=== PATIENT | male | born 1930 | race Caucasian/White ===

== ENCOUNTER 2016-05-25 15:41 | Inpatient (IN) | payer OTHER ==
[~2016-05-25] VITALS: Ht 170.2 cm; Wt 78.6 kg
[2016-05-25 17:46] LABS: HEMATOCRIT 25.4 % (38.0-50.0); MCHC 29.9 G/DL (30.0-36.0); MCV 93.7 FL (86-99); MEAN PLAT.VOLUME 9.8 uM^3 (9.0-12.4); NRBC (%) 0.4 /100 WBC (0-0); PLATELET COUNT 169 K/uL (156-360); RBC DIS.WIDTH-CV 16.5 % (11.8-14.6); RBC DIS.WIDTH-SD 56.8 % (39-53); RED BLOOD COUNT 2.71 M/uL (4.00-5.50); WHITE BLOOD COUNT 5.1 K/uL (4.1-10.2)
[2016-05-25 17:48] LABS: CHLORIDE 107 mEq/L (99-109); POTASSIUM 3.9 mEq/L (3.7-5.4); SODIUM 140 mEq/L (136-147)
[2016-05-25 17:50] LABS: GLUCOSE 97 mg/dL (70-99)
[2016-05-25 17:51] LABS: ANION GAP 11 MEQ/L (2-14)
[2016-05-25 17:54] LABS: GFR ESTIMATE (CALCULATED) 47 mL/min/; UREA NITROGEN (BUN) 30 mg/dL (9-23)
[2016-05-25] MEDS ORDERED: SIMVASTATIN80 MG PO (18:35)
[2016-05-25] MEDS ORDERED: SPIRONOLACTONE25 MG PO (18:35)
[2016-05-25] MEDS ORDERED: FUROSEMIDE80 MG PO (18:35)
[2016-05-25] MEDS ORDERED: IRON325 M1 PO (18:35)
[2016-05-25] MEDS ORDERED: COUMADIN2 MG PO (18:35)
[2016-05-25] MEDS ORDERED: SYNTHROID112 MCG PO (18:36)
[2016-05-25] MEDS ORDERED: EFFEXOR XR150 MG PO (18:36)
[2016-05-25] MEDS ORDERED: COUMADIN3 MG PO (18:36)
[2016-05-25] MEDS ORDERED: VALSARTAN160 MG PO (18:36)
[2016-05-25] MEDS ORDERED: LEVALBUTER1.25 MG/0. IH (18:36)
[2016-05-25 18:37] LABS: INTER. NORMALIZED RATIO 1.9; PROTHROMBIN TIME 20.1 (9.2-11.2)
[2016-05-25] MEDS ORDERED: ALLEGRA ALLERG180 MG PO (18:37)
[2016-05-25] MEDS ORDERED: CENTRUM SILVER1 EAC3 PO (18:37)
[2016-05-25] MEDS ORDERED: ADVIL200 MG PO (18:37)
[2016-05-25 19:57] VITALS: BP 130/77
[2016-05-25 20:17] VITALS: BP 139/83
[2016-05-25 21:25] VITALS: BP 131/87
[2016-05-25 21:42] LABS: TROP-I INTERPRETATION NEGATIVE; TROPONIN-I 0.11 ng/mL (0.0-0.30)
[2016-05-25 22:39] VITALS: BP 144/70
[2016-05-26] VITALS (8 sets, daily range): BP systolic 115–140; BP diastolic 63–77
[2016-05-26 05:01] LABS: HEMATOCRIT 30.6 % (38.0-50.0)
[2016-05-26 05:02] LABS: MCV 89.7 FL (86-99)
[2016-05-26 05:08] LABS: INTER. NORMALIZED RATIO 1.8; PROTHROMBIN TIME 18.2 (9.2-11.2)
[2016-05-26 05:09] LABS: CHLORIDE 108 mEq/L (99-109); POTASSIUM 3.9 mEq/L (3.7-5.4); SODIUM 140 mEq/L (136-147)
[2016-05-26 05:11] LABS: GLUCOSE 86 mg/dL (70-99)
[2016-05-26 05:12] LABS: ANION GAP 11 MEQ/L (2-14)
[2016-05-26 05:13] LABS: TOTAL BILIRUBIN 0.7 mg/dL (0.0-1.0)
[2016-05-26 05:15] LABS: ALKALINE PHOSPHATASE 71 IU/L (3-129); GFR ESTIMATE (CALCULATED) 51 mL/min/
[2016-05-26 05:16] LABS: UREA NITROGEN (BUN) 25 mg/dL (9-23)
[2016-05-26 05:19] LABS: TROP-I INTERPRETATION NEGATIVE; TROPONIN-I 0.11 ng/mL (0.0-0.30)
[2016-05-26 09:50] LABS: TROP-I INTERPRETATION NEGATIVE; TROPONIN-I 0.11 ng/mL (0.0-0.30)
[2016-05-26 12:17] LABS: HEMATOCRIT 30.3 % (38.0-50.0); MCV 90.7 FL (86-99)
[2016-05-26 17:55] LABS: MCV 92.7 FL (86-99)
[2016-05-27] VITALS (7 sets, daily range): BP systolic 103–145; BP diastolic 58–82
[2016-05-27 01:05] LABS: HEMATOCRIT 30.5 % (38.0-50.0); MCV 91.3 FL (86-99)
[2016-05-27 07:11] LABS: HEMATOCRIT 31.8 % (38.0-50.0); MCH 28.2 PG (29.0-34.0); MCHC 30.8 G/DL (30.0-36.0); MCV 91.6 FL (86-99); MEAN PLAT.VOLUME 9.8 uM^3 (9.0-12.4); PLATELET COUNT 155 K/uL (156-360); RBC DIS.WIDTH-CV 16.7 % (11.8-14.6); RBC DIS.WIDTH-SD 55.1 % (39-53); WHITE BLOOD COUNT 6.1 K/uL (4.1-10.2)
[2016-05-27 07:31] LABS: PROTHROMBIN TIME 20.7 (9.2-11.2)
[2016-05-27 07:35] LABS: ANION GAP 9 MEQ/L (2-14); CHLORIDE 108 MEQ/L (99-109); GFR ESTIMATE (CALCULATED) > 59 mL/min/; GLUCOSE 85 mg/dL (70-99); SAMPLE HEMOLYSIS CHECK 0; SAMPLE ICTERIC CHECK 0; SAMPLE LIPEMIA CHECK 0; SODIUM 140 MEQ/L (136-147); UREA NITROGEN (BUN) 19 mg/dL (9-23)
[2016-05-27 07:54] LABS: RED BLOOD COUNT 3.47 M/uL (4.00-5.50)
[2016-05-27 18:12] LABS: HEMATOCRIT 33.4 % (38.0-50.0); MCV 92.8 FL (86-99)
[2016-05-28] VITALS (7 sets, daily range): BP systolic 102–133; BP diastolic 58–75
[2016-05-28 06:30] LABS: HEMATOCRIT 32.1 % (38.0-50.0); MCH 28.2 PG (29.0-34.0); MCHC 30.5 G/DL (30.0-36.0); MCV 92.2 FL (86-99); MEAN PLAT.VOLUME 10.3 uM^3 (9.0-12.4); PLATELET COUNT 171 K/uL (156-360); RBC DIS.WIDTH-CV 16.7 % (11.8-14.6); RBC DIS.WIDTH-SD 54.7 % (39-53); RED BLOOD COUNT 3.48 M/uL (4.00-5.50); WHITE BLOOD COUNT 5.9 K/uL (4.1-10.2)
[2016-05-28 06:45] LABS: INTER. NORMALIZED RATIO 2.2; PROTHROMBIN TIME 22.7 (9.2-11.2)
[2016-05-28 07:06] LABS: ANION GAP 10 MEQ/L (2-14); CHLORIDE 105 MEQ/L (99-109); GFR ESTIMATE (CALCULATED) 56 mL/min/; POTASSIUM 3.7 MEQ/L (3.7-5.4); SAMPLE HEMOLYSIS CHECK 0; SAMPLE ICTERIC CHECK 0; SAMPLE LIPEMIA CHECK 0; SODIUM 138 MEQ/L (136-147); UREA NITROGEN (BUN) 16 mg/dL (9-23)
[2016-05-28 07:11] LABS: GLUCOSE 115 mg/dL (70-99)
[2016-05-29 00:02] LABS: HEMATOCRIT 32.8 % (38.0-50.0); MCH 28.4 PG (29.0-34.0); MCHC 31.4 G/DL (30.0-36.0); MCV 90.4 FL (86-99); MEAN PLAT.VOLUME 9.8 uM^3 (9.0-12.4); PLATELET COUNT 159 K/uL (156-360); RBC DIS.WIDTH-CV 16.3 % (11.8-14.6); RBC DIS.WIDTH-SD 53.7 % (39-53); RED BLOOD COUNT 3.63 M/uL (4.00-5.50); WHITE BLOOD COUNT 5.4 K/uL (4.1-10.2)
[2016-05-29 00:10] LABS: CHLORIDE 111 mEq/L (99-109); POTASSIUM 3.5 mEq/L (3.7-5.4); SODIUM 142 mEq/L (136-147)
[2016-05-29 00:11] LABS: MAGNESIUM 2.2 mg/dL (1.3-2.7)
[2016-05-29 00:12] LABS: GLUCOSE 92 mg/dL (70-99)
[2016-05-29 00:14] LABS: ANION GAP 12 MEQ/L (2-14)
[2016-05-29 00:16] LABS: GFR ESTIMATE (CALCULATED) > 59 mL/min/
[2016-05-29 00:17] LABS: UREA NITROGEN (BUN) 15 mg/dL (9-23)
[2016-05-29 00:24] LABS: TROP-I INTERPRETATION NEGATIVE; TROPONIN-I 0.11 ng/mL (0.0-0.30)
[2016-05-29 03:20] VITALS: BP 116/61
[2016-05-29 07:28] VITALS: BP 115/64
[2016-05-29 07:37] LABS: HEMATOCRIT 30.2 % (38.0-50.0); MCH 29.1 PG (29.0-34.0); MCHC 31.1 G/DL (30.0-36.0); MCV 93.5 FL (86-99); MEAN PLAT.VOLUME 9.9 uM^3 (9.0-12.4); PLATELET COUNT 136 K/uL (156-360); RBC DIS.WIDTH-CV 16.5 % (11.8-14.6); RED BLOOD COUNT 3.23 M/uL (4.00-5.50); WHITE BLOOD COUNT 4.8 K/uL (4.1-10.2)
[2016-05-29 07:47] LABS: INTER. NORMALIZED RATIO 2.3; PROTHROMBIN TIME 23.6 (9.2-11.2)
[2016-05-29 07:52] LABS: ADD MIUA? NO; BILIRUBIN NEGATIVE; BLOOD NEGATIVE; COLOR YELLOW ((YELLOW)); GLUCOSE (STRIP) NEGATIVE; KETONES NEGATIVE; LEUKOCYTES NEGATIVE; NITRITE NEGATIVE; PROTEIN (STRIP) NEGATIVE; SPECIFIC GRAVITY 1.019 (1.000-1.030); UROBILINOGEN 0.2 MG/DL (0.2-1.0)
[2016-05-29 08:18] LABS: ANION GAP 11 MEQ/L (2-14); CHLORIDE 108 MEQ/L (99-109); GFR ESTIMATE (CALCULATED) > 59 mL/min/; GLUCOSE 89 mg/dL (70-99); SAMPLE HEMOLYSIS CHECK 0; SAMPLE ICTERIC CHECK 0; SAMPLE LIPEMIA CHECK 0; SODIUM 142 MEQ/L (136-147); UREA NITROGEN (BUN) 14 mg/dL (9-23)
[2016-05-29 11:30] VITALS: BP 140/67
[2016-05-29 19:46] VITALS: BP 110/87
[2016-05-29 22:00] VITALS: BP 117/69
[2016-05-29 23:45] VITALS: BP 107/60
[2016-05-30] VITALS (7 sets, daily range): BP systolic 88–124; BP diastolic 50–77
[2016-05-30 07:19] LABS: MCH 28.5 PG (29.0-34.0); MCHC 30.7 G/DL (30.0-36.0); MCV 92.9 FL (86-99); MEAN PLAT.VOLUME 9.6 uM^3 (9.0-12.4); PLATELET COUNT 138 K/uL (156-360); RBC DIS.WIDTH-CV 16.2 % (11.8-14.6); RBC DIS.WIDTH-SD 55.2 % (39-53); RED BLOOD COUNT 3.23 M/uL (4.00-5.50)
[2016-05-30 07:28] LABS: WHITE BLOOD COUNT 6.3 K/uL (4.1-10.2)
[2016-05-30 12:04] LABS: HEMATOCRIT 28.8 % (38.0-50.0); MCV 93.5 FL (86-99)
[2016-05-30 16:13] LABS: HEMATOCRIT 31.4 % (38.0-50.0); MCV 92.9 FL (86-99)
[2016-05-30 18:04] LABS: BICARBONATE 22.1 mEq/L (22-26); COMMENTS - BLOOD GASES A+C+; DEVICE NCH; METHEMOGLOBIN 1.7 % (0-1.5); O2 FLOW 6 L/MIN; PCO2 34 mm Hg (35-45); PO2 64 mm Hg (80-100); SITE RR; pH 7.42 (7.35-7.45)
[2016-05-30 18:05] LABS: TOTAL RESP RATE 20 resp/min
[2016-05-30 19:32] LABS: TROP-I INTERPRETATION NEGATIVE; TROPONIN-I 0.13 ng/mL (0.0-0.30)
[2016-05-31 03:45] VITALS: BP 126/60
[2016-05-31 06:26] LABS: HEMATOCRIT 29.2 % (38.0-50.0); MCH 28.1 PG (29.0-34.0); MCHC 30.5 G/DL (30.0-36.0); MCV 92.1 FL (86-99); MEAN PLAT.VOLUME 9.9 uM^3 (9.0-12.4); PLATELET COUNT 119 K/uL (156-360); RBC DIS.WIDTH-CV 16.3 % (11.8-14.6); RBC DIS.WIDTH-SD 54.9 % (39-53); RED BLOOD COUNT 3.17 M/uL (4.00-5.50); WHITE BLOOD COUNT 5.9 K/uL (4.1-10.2)
[2016-05-31 06:35] LABS: ABSOLUTE RETICULOCYTE CT. 0.1 M/uL (0.02-0.08); IMM.RETIC FRACTION 26.8 % (3-19); RETIC HGB EQUIVALENT 24.3 (28-36); RETICULOCYTE COUNT 3.1 % (0.5-1.8)
[2016-05-31 06:48] LABS: GLOBULINS 2.4 G/DL (2.3-3.5)
[2016-05-31 06:56] LABS: INTER. NORMALIZED RATIO 1.6; PROTHROMBIN TIME 16.7 (9.2-11.2); PTT 32.3 (25-32)
[2016-05-31 07:36] LABS: ANION GAP 10 MEQ/L (2-14); CHLORIDE 106 MEQ/L (99-109); GFR ESTIMATE (CALCULATED) 56 mL/min/; GLUCOSE 88 mg/dL (70-99); POTASSIUM 4.3 MEQ/L (3.7-5.4); SAMPLE HEMOLYSIS CHECK 0; SAMPLE ICTERIC CHECK 0; SAMPLE LIPEMIA CHECK 0; SODIUM 137 MEQ/L (136-147); UREA NITROGEN (BUN) 21 mg/dL (9-23)
[2016-05-31 07:47] VITALS: BP 106/64
[2016-05-31 09:48] LABS: MAGNESIUM 2.1 mg/dl (1.3-2.7)
[2016-05-31 16:04] VITALS: BP 104/57
[2016-05-31 19:46] VITALS: BP 110/58
[2016-06-01] VITALS (7 sets, daily range): BP systolic 117–159; BP diastolic 58–87
[2016-06-01 06:36] LABS: HEMATOCRIT 28.9 % (38.0-50.0); MCHC 30.4 G/DL (30.0-36.0); MEAN PLAT.VOLUME 10.1 uM^3 (9.0-12.4); PLATELET COUNT 125 K/uL (156-360); RBC DIS.WIDTH-CV 16.3 % (11.8-14.6); RBC DIS.WIDTH-SD 54.5 % (39-53); RED BLOOD COUNT 3.14 M/uL (4.00-5.50)
[2016-06-01 06:45] LABS: WHITE BLOOD COUNT 3.5 K/uL (4.1-10.2)
[2016-06-01 08:00] LABS: ANION GAP 10 MEQ/L (2-14); CHLORIDE 106 MEQ/L (99-109); GFR ESTIMATE (CALCULATED) 56 mL/min/; GLUCOSE 132 mg/dL (70-99); POTASSIUM 4.3 MEQ/L (3.7-5.4); SAMPLE HEMOLYSIS CHECK 0; SAMPLE ICTERIC CHECK 0; SAMPLE LIPEMIA CHECK 0; SODIUM 136 MEQ/L (136-147); UREA NITROGEN (BUN) 22 mg/dL (9-23)
[2016-06-01 10:04] LABS: ALBUMIN 3.62 G/DL (3.6-4.9); ALBUMIN PERCENT 60.3 %; ALPHA-1 GLOBULIN 0.25 G/DL (0.15-0.40); ALPHA-1 PERCENT 4.2 %; ALPHA-2 GLOBULIN 0.63 G/DL (0.45-0.85); ALPHA-2 PERCENT 10.5 %; BETA PERCENT 10.7 %; GAMMA PERCENT 14.3 %
[2016-06-01 10:45] LABS: INTERPRETATION: Normal study.
[2016-06-01 22:09] LABS: FERRITIN 69 NG/ML (22-322)
[2016-06-02 04:00] VITALS: BP 132/70
[2016-06-02 07:03] LABS: EOSINOPHIL (%) 0 % (0-5); HEMATOCRIT 29.6 % (38.0-50.0); IMMATURE GRANULOCYTE (%) 0.5 % (0.0-0.7); INSTRUMENT ABS NEUTROPHIL CT 5.1 K/uL; INTER. NORMALIZED RATIO 1.3; LYMPHOCYTE COUNT 0.4 K/uL (1.0-2.8); MCHC 30.7 G/DL (30.0-36.0); MCV 91.1 FL (86-99); MEAN PLAT.VOLUME 10.5 uM^3 (9.0-12.4); MONOCYTE (%) 5.7 % (3-12); MONOCYTE COUNT 0.3 K/uL (0-0.8); NEUTROPHIL (%) 86.5 % (45-76); NEUTROPHIL COUNT 5.1 K/uL (1.8-6.4); PLATELET COUNT 145 K/uL (156-360); PROTHROMBIN TIME 13.8 (9.2-11.2); RBC DIS.WIDTH-SD 53.1 % (39-53); RED BLOOD COUNT 3.25 M/uL (4.00-5.50)
[2016-06-02 07:04] LABS: WHITE BLOOD COUNT 5.9 K/uL (4.1-10.2)
[2016-06-02 08:38] VITALS: BP 127/77
[2016-06-02 08:42] LABS: CHLORIDE 108 mEq/L (99-109); POTASSIUM 4.8 mEq/L (3.7-5.4); SODIUM 136 mEq/L (136-147)
[2016-06-02 08:43] LABS: GLUCOSE 116 mg/dL (70-99)
[2016-06-02 08:45] LABS: ANION GAP 11 MEQ/L (2-14)
[2016-06-02 08:47] LABS: GFR ESTIMATE (CALCULATED) 56 mL/min/
[2016-06-02 08:48] LABS: UREA NITROGEN (BUN) 29 mg/dL (9-23)
[2016-06-02 10:55] LABS: ADD DIFF? YES
[2016-06-02 11:03] VITALS: BP 132/80
[2016-06-02 16:25] VITALS: BP 139/78
[2016-06-02 20:15] VITALS: BP 123/70
[2016-06-03] VITALS: BP 128/68
[2016-06-03 04:02] VITALS: BP 132/63
[2016-06-03 06:51] LABS: HEMATOCRIT 29.1 % (38.0-50.0); MCH 27.8 PG (29.0-34.0); MCHC 30.2 G/DL (30.0-36.0); MCV 91.8 FL (86-99); PLATELET COUNT 146 K/uL (156-360); RBC DIS.WIDTH-CV 16.4 % (11.8-14.6); RBC DIS.WIDTH-SD 54.8 % (39-53); RED BLOOD COUNT 3.17 M/uL (4.00-5.50); WHITE BLOOD COUNT 5.9 K/uL (4.1-10.2)
[2016-06-03 07:20] LABS: ANION GAP 12 MEQ/L (2-14); CHLORIDE 105 MEQ/L (99-109); GFR ESTIMATE (CALCULATED) 44 mL/min/; GLUCOSE 107 mg/dL (70-99); POTASSIUM 4.4 MEQ/L (3.7-5.4); SAMPLE HEMOLYSIS CHECK 0; SAMPLE ICTERIC CHECK 0; SAMPLE LIPEMIA CHECK 0; SODIUM 138 MEQ/L (136-147); UREA NITROGEN (BUN) 37 mg/dL (9-23)
[2016-06-03 08:35] VITALS: BP 137/74
[2016-06-03 11:33] LABS: IFE GEL NO. 49-2
[2016-06-03 11:54] LABS: IRON 11 MCG/DL (35-150)
[2016-06-03 12:18] LABS: BASE EXCESS -4.2 mEq/L (-3 to +3); BICARBONATE 19.5 mEq/L (22-26); CARBOXY HGB 1.9 % (0-5); METHEMOGLOBIN 1.2 % (0-1.5); PCO2 30 mm Hg (35-45); PO2 60 mm Hg (80-100); pH 7.42 (7.35-7.45)
[2016-06-03 12:19] LABS: COMMENTS - BLOOD GASES A+C+; DEVICE HFNC; O2 FLOW 12 L/MIN; SITE RR; TOTAL RESP RATE 18 resp/min
[2016-06-03 12:41] VITALS: BP 149/86
[2016-06-03 16:16] VITALS: BP 139/76
[2016-06-03 19:33] VITALS: BP 150/67
[2016-06-04 01:14] VITALS: BP 148/85
[2016-06-04 03:51] VITALS: BP 129/79
[2016-06-04 08:24] VITALS: BP 126/78
[2016-06-04 08:46] LABS: HEMATOCRIT 31.1 % (38.0-50.0); MCH 27.9 PG (29.0-34.0); MCHC 30.9 G/DL (30.0-36.0); MCV 90.4 FL (86-99); MEAN PLAT.VOLUME 10.5 uM^3 (9.0-12.4); NRBC (%) 0.2 /100 WBC (0-0); PLATELET COUNT 168 K/uL (156-360); RBC DIS.WIDTH-CV 16.3 % (11.8-14.6); RBC DIS.WIDTH-SD 53.4 % (39-53); RED BLOOD COUNT 3.44 M/uL (4.00-5.50)
[2016-06-04 08:47] LABS: WHITE BLOOD COUNT 9.7 K/uL (4.1-10.2)
[2016-06-04 09:03] LABS: ALKALINE PHOSPHATASE 63 IU/L (3-129); ANION GAP 11 MEQ/L (2-14); CHLORIDE 105 MEQ/L (99-109); GFR ESTIMATE (CALCULATED) 51 mL/min/; GLUCOSE 96 mg/dL (70-99); POTASSIUM 4.2 MEQ/L (3.7-5.4); SAMPLE HEMOLYSIS CHECK 0; SAMPLE ICTERIC CHECK 0; SAMPLE LIPEMIA CHECK 0; SODIUM 138 MEQ/L (136-147); TOTAL BILIRUBIN 0.8 MG/DL (0.0-1.0); TROP-I INTERPRETATION NEGATIVE; TROPONIN-I 0.11 ng/mL (0.0-0.30); UREA NITROGEN (BUN) 39 mg/dL (9-23)
[2016-06-04 11:39] VITALS: BP 124/76
[2016-06-04 16:39] VITALS: BP 133/77
[2016-06-04 20:33] VITALS: BP 124/81
[2016-06-05 00:06] VITALS: BP 134/65
[2016-06-05 04:03] VITALS: BP 121/84
[2016-06-05 07:57] VITALS: BP 136/70
[2016-06-05 08:25] LABS: HEMATOCRIT 30.5 % (38.0-50.0); MCHC 30.8 G/DL (30.0-36.0); MCV 90.8 FL (86-99); MEAN PLAT.VOLUME 10.6 uM^3 (9.0-12.4); PLATELET COUNT 166 K/uL (156-360); RBC DIS.WIDTH-CV 16.7 % (11.8-14.6); RBC DIS.WIDTH-SD 55.3 % (39-53); RED BLOOD COUNT 3.36 M/uL (4.00-5.50); WHITE BLOOD COUNT 9.5 K/uL (4.1-10.2)
[2016-06-05 08:43] LABS: ANION GAP 10 MEQ/L (2-14); CHLORIDE 107 MEQ/L (99-109); POTASSIUM 4.1 MEQ/L (3.7-5.4); SAMPLE HEMOLYSIS CHECK 0; SAMPLE ICTERIC CHECK 0; SAMPLE LIPEMIA CHECK 0; SODIUM 138 MEQ/L (136-147)
[2016-06-05 08:48] LABS: GFR ESTIMATE (CALCULATED) 47 mL/min/; GLUCOSE 117 mg/dL (70-99); UREA NITROGEN (BUN) 38 mg/dL (9-23)
[2016-06-05 11:20] VITALS: BP 119/69
[2016-06-05 14:13] LABS: Flow Clinical Information NOT PROVIDED (()); Flow Number of Markers 22 (()); Flow Spec Viability 94 % (()); Flow Specimen Type BONE MARROW (())
[2016-06-05 15:24] VITALS: BP 129/74
[2016-06-05 20:00] VITALS: BP 148/71
[2016-06-06] VITALS: BP 147/66
[2016-06-06 04:58] VITALS: BP 126/74
[2016-06-06 07:51] VITALS: BP 165/80
[2016-06-06 09:43] LABS: MAGNESIUM 2.3 mg/dl (1.3-2.7)
[2016-06-06 10:06] LABS: BICARBONATE 20.6 mEq/L (22-26); CARBOXY HGB 2.2 % (0-5); COMMENTS - BLOOD GASES A+C+; METHEMOGLOBIN 1.6 % (0-1.5); PCO2 31 mm Hg (35-45); PO2 58 mm Hg (80-100); SITE RR; pH 7.43 (7.35-7.45)
[2016-06-06 10:07] LABS: DEVICE HIGH FLOW CANNULA; O2 FLOW 10 L/MIN; TOTAL RESP RATE 16 resp/min
[2016-06-06 11:30] VITALS: BP 115/69
[2016-06-06 16:08] VITALS: BP 128/68
[2016-06-06 20:32] VITALS: BP 139/64
[2016-06-07] VITALS (8 sets, daily range): BP systolic 119–151; BP diastolic 62–85
[2016-06-07] MEDS ORDERED: FERROUS SULFAT325 MG PO (13:06)
[2016-06-07] MEDS ORDERED: FUROSEMIDE40 MG PO (13:06)
[2016-06-07] MEDS ORDERED: CORDARONE200 MG PO (13:06)
[2016-06-07] MEDS ORDERED: SPIRIVA RESPIMAT4 GM IH (13:06)
[2016-06-08 03:39] VITALS: BP 137/67
[2016-06-08 07:36] VITALS: BP 132/70
[2016-06-08 11:54] VITALS: BP 131/71
[2016-06-08 15:43] VITALS: BP 119/64
[2016-06-08 20:06] VITALS: BP 118/61
[2016-06-08 23:33] VITALS: BP 125/61
[2016-06-09 08:05] VITALS: BP 153/78
[2016-06-09 10:20] LABS: HEMATOCRIT 34.9 % (38.0-50.0); MCHC 29.2 G/DL (30.0-36.0); MEAN PLAT.VOLUME 9.9 uM^3 (9.0-12.4); PLATELET COUNT 168 K/uL (156-360); RBC DIS.WIDTH-CV 19.9 % (11.8-14.6); RBC DIS.WIDTH-SD 62.6 % (39-53); RED BLOOD COUNT 3.64 M/uL (4.00-5.50); WHITE BLOOD COUNT 7.8 K/uL (4.1-10.2)
[2016-06-09 10:22] LABS: MCV 95.9 FL (86-99)
[2016-06-09 10:34] LABS: ANION GAP 8 MEQ/L (2-14); CHLORIDE 107 MEQ/L (99-109); GFR ESTIMATE (CALCULATED) > 59 mL/min/; GLUCOSE 126 mg/dL (70-99); SAMPLE HEMOLYSIS CHECK 0; SAMPLE ICTERIC CHECK 0; SAMPLE LIPEMIA CHECK 0; SODIUM 139 MEQ/L (136-147); UREA NITROGEN (BUN) 20 mg/dL (9-23)
[2016-06-09 10:36] LABS: POTASSIUM 3.1 MEQ/L (3.7-5.4)
[2016-06-09 11:13] VITALS: BP 148/81
[2016-06-09 15:26] VITALS: BP 134/73
[2016-06-09 19:59] VITALS: BP 122/66
[2016-06-10] VITALS (7 sets, daily range): BP systolic 130–148; BP diastolic 65–84
[2016-06-10 07:42] LABS: EOSINOPHIL (%) 0.3 % (0-5); HEMATOCRIT 33.1 % (38.0-50.0); IMMATURE GRANULOCYTE (%) 1.8 % (0.0-0.7); IMMATURE GRANULOCYTE COUNT 0.1 K/uL; INSTRUMENT ABS NEUTROPHIL CT 6.3 K/uL; LYMPHOCYTE COUNT 0.5 K/uL (1.0-2.8); MCH 28.2 PG (29.0-34.0); MCHC 29.6 G/DL (30.0-36.0); MCV 95.1 FL (86-99); MEAN PLAT.VOLUME 10.2 uM^3 (9.0-12.4); MONOCYTE (%) 4.5 % (3-12); MONOCYTE COUNT 0.3 K/uL (0-0.8); NEUTROPHIL (%) 86.6 % (45-76); NEUTROPHIL COUNT 6.3 K/uL (1.8-6.4); PLATELET COUNT 153 K/uL (156-360); RBC DIS.WIDTH-CV 19.5 % (11.8-14.6); RBC DIS.WIDTH-SD 60.8 % (39-53); RED BLOOD COUNT 3.48 M/uL (4.00-5.50); WHITE BLOOD COUNT 7.3 K/uL (4.1-10.2)
[2016-06-10 08:11] LABS: ANION GAP 11 MEQ/L (2-14); CHLORIDE 104 MEQ/L (99-109); GFR ESTIMATE (CALCULATED) > 59 mL/min/; GLUCOSE 123 mg/dL (70-99); SAMPLE HEMOLYSIS CHECK 0; SAMPLE ICTERIC CHECK 0; SAMPLE LIPEMIA CHECK 0; SODIUM 139 MEQ/L (136-147); UREA NITROGEN (BUN) 21 mg/dL (9-23)
[2016-06-10 08:18] LABS: POTASSIUM 3.8 MEQ/L (3.7-5.4)
[2016-06-11 04:19] VITALS: BP 158/87
[2016-06-11 08:32] VITALS: BP 154/89
[2016-06-11 12:02] VITALS: BP 149/74
[2016-06-11 16:00] VITALS: BP 144/86
[2016-06-11 20:24] VITALS: BP 152/81
[2016-06-11 23:58] VITALS: BP 165/89
[2016-06-12 04:29] VITALS: BP 144/83
[2016-06-12 07:19] LABS: EOSINOPHIL (%) 0 % (0-5); HEMATOCRIT 36.8 % (38.0-50.0); IMMATURE GRANULOCYTE COUNT 0.1 K/uL; INSTRUMENT ABS NEUTROPHIL CT 8.7 K/uL; LYMPHOCYTE COUNT 0.6 K/uL (1.0-2.8); MCH 28.9 PG (29.0-34.0); MCHC 30.4 G/DL (30.0-36.0); MCV 94.8 FL (86-99); MEAN PLAT.VOLUME 10.4 uM^3 (9.0-12.4); MONOCYTE (%) 5.4 % (3-12); MONOCYTE COUNT 0.5 K/uL (0-0.8); NEUTROPHIL (%) 87.7 % (45-76); NEUTROPHIL COUNT 8.7 K/uL (1.8-6.4); PLATELET COUNT 173 K/uL (156-360); RBC DIS.WIDTH-CV 19.9 % (11.8-14.6); RBC DIS.WIDTH-SD 67.5 % (39-53); RED BLOOD COUNT 3.88 M/uL (4.00-5.50)
[2016-06-12 07:24] LABS: WHITE BLOOD COUNT 9.9 K/uL (4.1-10.2)
[2016-06-12 07:58] VITALS: BP 144/83
[2016-06-12 07:58] LABS: ANION GAP 12 MEQ/L (2-14); CHLORIDE 104 MEQ/L (99-109); GFR ESTIMATE (CALCULATED) 56 mL/min/; MAGNESIUM 2.1 mg/dl (1.3-2.7); POTASSIUM 3.7 MEQ/L (3.7-5.4); SAMPLE HEMOLYSIS CHECK 0; SAMPLE ICTERIC CHECK 0; SAMPLE LIPEMIA CHECK 0; SODIUM 140 MEQ/L (136-147)
[2016-06-12 08:01] LABS: GLUCOSE 90 mg/dL (70-99); UREA NITROGEN (BUN) 32 mg/dL (9-23)
[2016-06-12 08:09] LABS: ANION GAP 12 MEQ/L (2-14); CHLORIDE 104 MEQ/L (99-109); GFR ESTIMATE (CALCULATED) 56 mL/min/; GLUCOSE 90 mg/dL (70-99); POTASSIUM 3.7 MEQ/L (3.7-5.4); SAMPLE HEMOLYSIS CHECK 0; SAMPLE ICTERIC CHECK 0; SAMPLE LIPEMIA CHECK 0; SODIUM 140 MEQ/L (136-147); UREA NITROGEN (BUN) 32 mg/dL (9-23)
[2016-06-12 11:40] VITALS: BP 156/87
[2016-06-12] MEDS ORDERED: PANTOPRAZOLE SO40 MG PO (14:05)
[2016-06-12] MEDS ORDERED: FERROUS SULFAT325 MG PO (14:05)
[2016-06-12] MEDS ORDERED: SPIRIVA RESPIMAT4 GM IH (14:05)
[2016-06-12] MEDS ORDERED: CORDARONE200 MG PO (14:05)
[2016-06-12] MEDS ORDERED: PREDNISONE10 MG PO (14:05)
[2016-06-12] MEDS ORDERED: ADVAIR 250/501 DISK IH (14:06)
== END 2016-06-12 15:47 | disposition home health service (06) | DRG 377 ==
LOC: EME 15:41 → EDOF 19:54 → 5WEST 19:54 → EDOF 19:54 → 5WEST 21:30 → 5SOUTH 05-26 10:21 → 5WEST 05-26 10:21 → 5SOUTH 05-26 17:25
PROVIDERS: Hospitalist; Internal Medicine; Internal Medicine Gastroenterology; Internal Medicine Hematology & Oncology; Nurse Practitioner Adult Health; Physician Assistant; Physician Assistant Medical; Radiology Diagnostic Radiology
PROC: 30233N1 Transfusion of Nonautologous Red Blood Cells into Peripheral Vein, Percutaneous Approach (ICD-10-PCS; 2016-05-25)
PROC: 0DJ08ZZ Inspection of Upper Intestinal Tract, Via Natural or Artificial Opening Endoscopic (ICD-10-PCS; principal; 2016-05-26)
PROC: 0DBH8ZX Excision of Cecum, Via Natural or Artificial Opening Endoscopic, Diagnostic (ICD-10-PCS; 2016-05-29)
PROC: 07DR3ZX Extraction of Iliac Bone Marrow, Percutaneous Approach, Diagnostic (ICD-10-PCS; 2016-06-02)
PROC: BR2CZZZ Computerized Tomography (CT Scan) of Pelvis (ICD-10-PCS; 2016-06-02)
DX: K92.2 Gastrointestinal hemorrhage, unspecified (principal); J96.01 Acute respiratory failure with hypoxia; K63.3 Ulcer of intestine; I47.2 Ventricular tachycardia; J90 Pleural effusion, not elsewhere classified; I27.2 Other secondary pulmonary hypertension; I50.9 Heart failure, unspecified; I07.1 Rheumatic tricuspid insufficiency; I48.2 Chronic atrial fibrillation; I48.1 Persistent atrial fibrillation; I25.810 Atherosclerosis of coronary artery bypass graft(s) without angina pectoris; E03.9 Hypothyroidism, unspecified; D62 Acute posthemorrhagic anemia; I10 Essential (primary) hypertension; K21.9 Gastro-esophageal reflux disease without esophagitis; E78.5 Hyperlipidemia, unspecified; D63.8 Anemia in other chronic diseases classified elsewhere; D75.9 Disease of blood and blood-forming organs, unspecified; R60.9 Edema, unspecified; F32.9 Major depressive disorder, single episode, unspecified; N28.9 Disorder of kidney and ureter, unspecified; E66.9 Obesity, unspecified; Z68.27 Body mass index [BMI] 27.0-27.9, adult; Z79.01 Long term (current) use of anticoagulants; Z95.5 Presence of coronary angioplasty implant and graft; Z88.8 Allergy status to other drugs, medicaments and biological substances; Z95.2 Presence of prosthetic heart valve; Z96.642 Presence of left artificial hip joint; K64.9 Unspecified hemorrhoids
CPT/HCPCS: 36600; 71010; 71020; 71250; 71275; 74176; 77012; 78582; 80048; 80048 91; 80053; 80069; 81003; 82607; 82728; 82746; 82803; 83540; 83735; 83785 90; 83880; 83883 90; 84100; 84165; 84466; 84484; 85014; 85018; 85025; 85027; 85045; 85610; 85651; 85730; 85999; 86140; 86334; 86850; 86900; 86901; 86920; 88184 90; 88185 90; 88189 90; 88237 90; 88264 90; 88280 90; 88291 90; 88305; 93005; 93306; 93970; 93971; 94060; 94640; 94640 76; 94726; 94729; 94760; 94799; 99202; 99281; 99285; A9540; A9567; C9113; G0378; J0290; J1756; J1940; J2405; J3010; J7030; J7040; J7050; J7512; P9016